=== PATIENT | female | born 1980 | race Caucasian/White ===

== ENCOUNTER 2017-03-18 18:34 | Inpatient (IN) | payer OTHER ==
[2017-03-18] MEDS ORDERED: Dinoprostone* 10 MG VAG.SUPP VAGINAL ONE (19:23)
[2017-03-18] MEDS: diPHENhydraMINE PO* 25 MG PO PRN (22:03)
[2017-03-19] MEDS ORDERED: Misoprostol TAB* 100 MCG VAGINAL ONE (08:20)
[2017-03-19] MEDS ORDERED: Misoprostol TAB* 100 MCG ONE (08:22)
[2017-03-19] MEDS: Oxytocin in LR* 20 UNITS/1,000 ML BAG IVPB SCH (14:20)
[2017-03-19 14:26] LABS: Hematocrit 36 % (35-47); Hemoglobin 11.8 g/dl (12.0-16.0); Mean Corpuscular HGB Conc 33 g/dl (31-36); Mean Corpuscular Hemoglobin 30 pg (27-31); Mean Corpuscular Volume 90 fL (80-97); Mean Platelet Volume 11 um3 (7.4-10.4); Red Blood Count 3.97 10^6/ul (4.0-5.4); Red Cell Distribution Width 14 % (10.5-15); White Blood Count 12.8 10^3/ul (3.5-10.8)
[2017-03-19 14:35] LABS: Add Diff/Slide Review? Slide Review Added; Comments Flag Yes
[2017-03-19 15:00] LABS: Platelet Morphology Large; Polychromasia 1+
[2017-03-19] MEDS: diPHENhydraMINE PO* 25 MG PO PRN (22:11)
[2017-03-20] MEDS ORDERED: Misoprostol TAB* 100 MCG VAGINAL ONE ×2 (08:47→13:18)
[2017-03-20] MEDS: Oxytocin in LR* 20 UNITS/1,000 ML BAG IVPB SCH (18:05)
[2017-03-20] MEDS: diPHENhydraMINE PO* 25 MG PO PRN (22:32)
[2017-03-21] MEDS: Oxytocin in LR* 20 UNITS/1,000 ML BAG IVPB SCH (08:45)
[2017-03-21] MEDS ORDERED: Oxytocin in LR* 20 UNITS/1,000 ML BAG IVPB SCH (23:00)
[2017-03-21] MEDS ORDERED: OBEPIDURAL* 250 ML ONE (23:02)
[2017-03-21 23:06] LABS: Hematocrit 36 % (35-47); Hemoglobin 11.7 g/dl (12.0-16.0); Mean Corpuscular HGB Conc 33 g/dl (31-36); Mean Corpuscular Hemoglobin 30 pg (27-31); Mean Corpuscular Volume 91 fL (80-97); Mean Platelet Volume 12 um3 (7.4-10.4); Red Blood Count 3.91 10^6/ul (4.0-5.4); Red Cell Distribution Width 15 % (10.5-15); White Blood Count 13.8 10^3/ul (3.5-10.8)
[2017-03-21 23:14] LABS: Comments Flag Yes
[2017-03-21] MEDS ORDERED: Phenylephrine IV* 40 MCG/ML 10 ML SYRINGE IV PUSH PRN ×2 (23:43)
[2017-03-21] MEDS ORDERED: Sodium Citrate/Citric Acid* 15 ML UDC PO PRN (23:43)
[2017-03-21] MEDS ORDERED: OBEPIDURAL* 250 ML EPIDURAL SCH (23:45)
[2017-03-22] MEDS ORDERED: Phenylephrine IV* 40 MCG/ML 10 ML SYRINGE IV PUSH PRN (00:25)
[2017-03-22] MEDS: Oxytocin in LR* 20 UNITS/1,000 ML BAG IVPB SCH (07:53)
[2017-03-22] MEDS ORDERED: Gentamicin Pediatric(*) 10 MG/ML 2 ML VIAL IVPB SCH (08:00)
[2017-03-22] MEDS ORDERED: Gentamicin ADULT per pharmacy 1 NOTE MISC FOLLOW UP PRN (08:03)
[2017-03-22] MEDS ORDERED: Acetaminophen TAB* 325 MG PO ONE (08:05)
[2017-03-22] MEDS ORDERED: ceFOXitin 2 GM IVPREMIX* 2 GM/50 ML BAG ONE (13:33)
[2017-03-22] MEDS ORDERED: Morphine PF AMP (0.5MG/ML)* 5 MG/10 ML AMP ONE (14:11)
[2017-03-22] MEDS ORDERED: OXYTOCIN* 10 UNITS/ML 1 ML VIAL ONE (14:24)
[2017-03-22] MEDS ORDERED: Naloxone* 0.4 MG/ML 1 ML VIAL IV PRN (14:42)
[2017-03-22] MEDS ORDERED: Ondansetron INJ* 2 MG/ML VIAL IV PRN (14:42)
[2017-03-22] MEDS ORDERED: DiMENhydriNATE IV* 50 MG/ML VIAL IV PUSH PRN (14:42)
[2017-03-22] MEDS ORDERED: oxyCODONE/Acetamin 5/325 MG* TAB PO PRN (14:42)
[2017-03-22] MEDS ORDERED: Nalbuphine* 20 MG/ML 1 ML VIAL IV PRN (14:42)
[2017-03-22] MEDS ORDERED: Ondansetron INJ* 2 MG/ML VIAL ONE (14:44)
[2017-03-22] MEDS ORDERED: fentaNYL* 50 MCG/ML 2 ML VIAL (100 MCG VIAL) IV PRN (14:46)
[2017-03-22] MEDS ORDERED: Phenylephrine IV* 40 MCG/ML 10 ML SYRINGE ONE (15:07)
[2017-03-22] MEDS ORDERED: Glycerin ADULT SUPP PR PRN (15:36)
[2017-03-22] MEDS ORDERED: Acetaminophen TAB* 325 MG PO PRN (15:36)
[2017-03-22] MEDS ORDERED: Dibucaine 1% 28.35 GM TUBE PR PRN (15:36)
[2017-03-22] MEDS ORDERED: Witch Hazel PAD* JAR TOPICAL PRN (15:36)
[2017-03-22] MEDS ORDERED: Misoprostol TAB* 200 MCG ONE (17:01)
[2017-03-22] MEDS: Ketorolac INJ* 30 MG/ML 1 ML VIAL IV PRN ×2 (17:47→23:55)
[2017-03-22] MEDS: Simethicone TAB* 80 MG TAB.CHEW PO SCH ×2 (17:47→22:22)
[2017-03-22] MEDS: Docusate CAP* 100 MG PO SCH (22:22)
--- NOTE | 2017-03-23 02:09 | OP ---
DATE OF OPERATION: 03/22/17 - ROOM #[facility]OB-101 DATE OF : 84 SURGEON: Josette Delarosa MD PRINTING ASSISTANT: Francine Salgado CNM PRE-OP DIAGNOSIS: Intrauterine gestation at 41 plus weeks gestational age, arrest of dilation. POST-OP DIAGNOSIS: Intrauterine gestation at 41 plus weeks gestational age, arrest of dilation plus thick meconium. OPERATIVE PROCEDURE: Primary low transverse section. ESTIMATED BLOOD LOSS: 800 mL. FLUIDS: Crystalloid. DRAINS: Noble catheter, 250 cc clear urine. FINDINGS: Female . Weight 8 pounds 7 ounces. Apgars 9 and 9. Normal- appearing placenta. Normal uterus, ovaries and tubes. Significant edema in the peritoneum and around the uterus and adnexa. COMPLICATIONS: None. DESCRIPTION OF PROCEDURE: After informed consent was signed, the patient was taken to the operating room where her epidural anesthesia was re-dosed and found to be adequate. She already had a Noble catheter in place. SCDs were placed on her legs. She was then prepped and draped in the dorsal supine position with a leftward tilt. A time-out was performed. A Pfannenstiel skin incision was then made with the scalpel and carried down to the underlying layer of fascia with the scalpel. The fascia was incised on either side of the midline and the fascial incision extended laterally with sharp dissection. The inferior edge of the fascial incision was then grasped with Elise clamps, tented up and dissected down with sharp dissection. The superior edge of the fascial incision was then grasped with Elise clamps, tented up and dissected down with sharp dissection. The rectus muscles were in the midline and the peritoneum was entered bluntly. A bladder flap was created in the vesicouterine peritoneum with the Metzenbaum scissors. The bladder blade was then reinserted and transverse incision was made in the lower uterine segment with the scalpel. The incision was extended superiorly and inferiorly with blunt pressure. The 's head was found to be in occiput posterior presentation. The head was brought to the incision and the head was delivered with fundal pressure followed by the shoulders and the rest of the body. The cord was milked towards the baby for 30 seconds and then clamped x2 and cut, and the baby was handed to the assistant strength coach. The placenta delivered with manual removal and cord blood was collected. The uterus was then exteriorized and cleared of clots and debris. The uterine incision was closed with 0 Vicryl in a running locked fashion. There was still a moderate amount of uterine bleeding, therefore 800 mcg of Cytotec was given rectally by the nurse. The second layer of 0 Vicryl suture was then used to close the uterus imbricating the first layer. The abdomen was irrigated. While irrigating and suctioning, the patient's left adnexa stretched and torsed slightly, causing a small amount of bleeding. This was stopped with cautery with the Bovie. The uterus was then placed back into the abdominal cavity and the incision was inspected and good hemostasis was noted. The location in the adnexa was also inspected and was also noted to have good hemostasis. The peritoneum was closed with 3-0 chromic in a running unlocked fashion. The fascia was closed with 0 Vicryl in a running unlocked fashion. The skin was closed with 4-0 Monocryl in a running subcuticular fashion. The incision was clean. Mastisol and Steri- Strips were placed. The incision was dressed. The patient was moved to the stretcher and taken to the recovery room in stable condition. [id number]/[facility] #: [id number] VANI
[2017-03-23] MEDS ORDERED: Zolpidem TAB* 5 MG PO PRN (06:15)
[2017-03-23] MEDS: Ketorolac INJ* 30 MG/ML 1 ML VIAL IV PRN ×2 (06:26→13:02)
[2017-03-23] MEDS ORDERED: Ferrous Gluconate TAB* 324 MG TAB PO SCH (09:00)
[2017-03-23] MEDS: Simethicone TAB* 80 MG TAB.CHEW PO SCH ×4 (09:47→23:00)
[2017-03-23] MEDS: Docusate CAP* 100 MG PO SCH ×3 (09:47→23:00)
[2017-03-23 09:57] LABS: Hematocrit 31 % (35-47); Hemoglobin 10.4 g/dl (12.0-16.0); Mean Corpuscular HGB Conc 34 g/dl (31-36); Mean Corpuscular Hemoglobin 31 pg (27-31); Mean Corpuscular Volume 90 fL (80-97); Mean Platelet Volume 10 um3 (7.4-10.4); Red Cell Distribution Width 15 % (10.5-15); White Blood Count 17.2 10^3/ul (3.5-10.8)
[2017-03-23] MEDS: oxyCODONE/Acetamin 5/325 MG* TAB PO PRN ×2 (17:06→21:40)
[2017-03-23] MEDS: Ibuprofen TAB* 600 MG PO PRN (21:40)
[2017-03-24] MEDS: oxyCODONE/Acetamin 5/325 MG* TAB PO PRN ×4 (01:25→20:10)
[2017-03-24] MEDS: Ibuprofen TAB* 600 MG PO PRN ×4 (03:35→22:40)
[2017-03-24] MEDS: Docusate CAP* 100 MG PO SCH ×3 (08:44→20:09)
[2017-03-24] MEDS: Simethicone TAB* 80 MG TAB.CHEW PO SCH ×3 (08:44→20:09)
--- NOTE | 2017-03-24 10:25 | PTEDU ---
Patient Name: GAETANO WILCOX GAETANO WILCOX selected video: Never Ever Shake a Baby to view on 03/24/2017 at 10:23:34 AM from [facility] [id number]
[2017-03-25] MEDS: oxyCODONE/Acetamin 5/325 MG* TAB PO PRN ×2 (02:47→10:49)
[2017-03-25] MEDS: Ibuprofen TAB* 600 MG PO PRN ×2 (05:03→10:49)
[2017-03-25 08:35] VITALS: BP 117/46
[2017-03-25] MEDS: Docusate CAP* 100 MG PO SCH (09:00)
[2017-03-25] MEDS: Simethicone TAB* 80 MG TAB.CHEW PO SCH (09:47)
== END 2017-03-25 12:01 | disposition home or self-care (01) | DRG 765 ==
LOC: MCHOBOUT 18:34 → MCHOB 19:00
PROVIDERS: ADMIT Midwife; ATTEND Obstetrics & Gynecology
PROC: 3E0P3VZ Introduction of Hormone into Female Reproductive, Percutaneous Approach (ICD-10-PCS; 2017-03-18)
PROC: 3E0P7VZ Introduction of Hormone into Female Reproductive, Via Natural or Artificial Opening (ICD-10-PCS; 2017-03-18)
PROC: 4A1HXCZ Monitoring of Products of Conception, Cardiac Rate, External Approach (ICD-10-PCS; 2017-03-19)
PROC: 10907ZC Drainage of Amniotic Fluid, Therapeutic from Products of Conception, Via Natural or Artificial Opening (ICD-10-PCS; 2017-03-21)
PROC: 10D00Z1 Extraction of Products of Conception, Low, Open Approach (ICD-10-PCS; principal; 2017-03-22 14:02)
DX: O48.0 Post-term pregnancy (principal); O75.2 Pyrexia during labor, not elsewhere classified; O62.1 Secondary uterine inertia; O77.0 Labor and delivery complicated by meconium in amniotic fluid; Z37.0 Single live birth; Z3A.41 41 weeks gestation of pregnancy
CPT/HCPCS: 36415; 85025; 85027; 86850; 86900; 86901; 88307; A9270-GY; J0290; J0694; J1580; J1885; J2405; J2590; S0191

== ENCOUNTER 2017-05-18 14:03 | Emergency (ER) | payer OTHER ==
[2017-05-18 16:00] VITALS: BP 112/56
--- NOTE | 2017-05-18 16:35 | UC ---
Breast Complaint - HPI Summary HPI Summary: ONSET OF LEFT BREAST REDNESS, FIRMNESS AND PAIN YESTERDAY. HAS CHILLS, MALAISE AND SUBJECTIVE FEVER. 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 ALSO HAS NOTICED SOME WHITE SPOTS ON HER NIPPLE WHICH SHE THINKS ARE CLOGGED DUCTS. - History of Current Complaint Hx Obtained From: Patient Breast Chief Complaint: Pain, Left, Color Changes Onset/Duration: Started Days Ago, Still Present Timing: Constant Breast Pain Aggravating Factors: Palpation, Pressure Breast Pain Alleviating Factors: Nothing Breast Associated Signs/Symptoms: Fever, Redness, Warmth - Allergy/Home Medications Allergies/Adverse Reactions: Allergies Allergy/AdvReac Type Severity Reaction Status Date / Time Lactose Intolerance (GI) Allergy GI Upset Verified 05/18/17 16:00 ENVIRONMENTAL Allergy STUFFINESS Uncoded 05/18/17 16:00 PMH/Surg Hx/FS Hx/Imm Hx Previously Healthy: Yes - Surgical History Surgical History: Yes Surgery Procedure, Year, and Place: 2012 WISDOM TEETH EXTRACTION, [place]. 2008 RIGHT BREAST BIOPSY, [facility]. MOLE REMOVED FROM BACK OF LEFT LEG, - Family History Known Family History: Positive: Hypertension - Social History Alcohol Use: None Substance Use Type: None Smoking Status (MU): Never Smoked Tobacco - Immunization History Most Recent Influenza Vaccination: 03/13/17 Most Recent Pneumonia Vaccination: na Review of Systems Constitutional: Fever, Chills Skin: Other - LEFT BREAST REDNESS, PAIN Respiratory: Negative Cardiovascular: Negative Gastrointestinal: Negative All Other Systems Reviewed And Are Negative: Yes Physical Exam Triage Information Reviewed: Yes Appearance: Well-Appearing, No Pain Distress, Well-Nourished Vital Signs: Initial Vital Signs Temp 99.4 F 05/18/17 15:54 Pulse 125 05/18/17 15:54 Resp 16 05/18/17 15:54 BP 112/56 05/18/17 15:54 Pulse Ox 100 05/18/17 15:54 Vital Signs Reviewed: Yes Eyes: Positive: Conjunctiva Clear ENT: Positive: Hearing grossly normal Neck: Positive: Supple Respiratory: Positive: No respiratory distress, No accessory muscle use Cardiovascular: Positive: Pulses Normal Abdomen Description: Positive: Soft Musculoskeletal: Positive: No Edema Neurological: Positive: Alert Psychological: Positive: Age Appropriate Behavior Skin: Negative: Other - LEFT BREAST ERYTHEMA, WARMTH AND TENDERNESS LOWER MEDIAL AND LATERAL QUADRANTS. NIPPLE CRACKED Breast Pain Course/Dx - Diagnoses Provider Diagnoses: Mastitis, left, acute Discharge - Discharge Plan Condition: Stable Disposition: HOME Prescriptions: Cephalexin CAP* [Keflex 500 CAP*] 1,000 mg PO BID #40 cap Patient Education Materials: Mastitis (ED) Referrals: Tawanna Thompson MD [Primary Care Provider] - If Needed Additional Instructions: TAKE THE FULL COURSE OF ANTIBIOTICS. YOU HAVE A CLOGGED MILK DUCT. IT IS VERY IMPORTANT THAT YOU CONTINUE TO BREASTFEED AND PUMP IN ORDER TO CLEAR THE BLOCKAGE. HEAT AND MASSAGE MAY ALSO HELP. USE IBUPROFEN FOR DISCOMFORT. THIS IS SAFE DURING . IF YOU CONTINUE TO HAVE DIFFICULTY WITH LATCH ON THE LEFTY SIDE CALL YOUR PEDIATRICIANS OFFICE TO INQUIRE ABOUT SEEING A GARBAGE PICK UP WORKER.
== END 2017-05-18 16:45 | disposition home or self-care (01) ==
LOC: UCEAST 14:03
DX: N61.0 Mastitis without abscess (principal)
CPT/HCPCS: 99212; G0463

== ENCOUNTER 2018-05-14 19:23 | Emergency (ER) | payer OTHER ==
[2018-05-14] MEDS ORDERED: Tetan/Diph/Pertus SYR(Tdap)* 0.5 ML SYR(BOOSTRIX) use SYR IM ONE (19:40)
--- NOTE | 2018-05-14 19:44 | UC ---
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 She tells me that she was doing dishes and a knife slipped and lacerated her right dorsal thumb. She applied a bandage to the area and came to . She is unsure the date of her last tetanus. - History Of Current Complaint Stated Complaint: FINGER LACERATION Time Seen by Provider: 05/14/18 19:42 Hx Obtained From: Patient Hx Last Menstrual Period: 12/29/16 Laceration Location: Finger Mechanism Of Injury: Sharp Trauma Onset/Duration: Sudden Onset Severity: Moderate Pain Intensity: 6 Pain Scale Used: 0-10 Numeric - Allergies/Home Medications Allergies/Adverse Reactions: Allergies Allergy/AdvReac Type Severity Reaction Status Date / Time MS Lactose Intolerance (GI) Allergy GI Upset Verified 05/18/17 16:00 [Lactose Intolerance (GI)] ENVIRONMENTAL Allergy STUFFINESS Uncoded 05/18/17 16:00 PMH/Surg Hx/FS Hx/Imm Hx - Additional Past Medical History Additional PMH: None - Surgical History Surgical History: Yes Surgery Procedure, Year, and Place: 2013 WISDOM TEETH EXTRACTION, [place]. 2009 RIGHT BREAST BIOPSY, [facility]. MOLE REMOVED FROM BACK OF LEFT LEG, - Family History Known Family History: Positive: Hypertension - Social History Occupation: Employed Full-time Lives: With Family Alcohol Use: None Substance Use Type: None Smoking Status (MU): Never Smoked Tobacco - Immunization History Most Recent Influenza Vaccination: 03/13/17 Most Recent Pneumonia Vaccination: na Review of Systems All Other Systems Reviewed And Are Negative: Yes Constitutional: Positive: Negative Skin: Positive: Other - Finger laceration Respiratory: Positive: Negative Cardiovascular: Positive: Negative Neurovascular: Positive: Negative Musculoskeletal: Positive: Negative Neurological: Positive: Negative Psychological: Positive: Negative Physical Exam - Summary Physical Exam Summary: GENERAL: NAD. WDWN. No pain distress. SKIN: RIGHT THUMB: Dorsal aspect overlying MCP with 1.5cm linear laceration through the dermis. No tendon involvement. NECK: Supple. Nontender. No lymphadenopathy. CHEST: No accessory muscle use. Breathing comfortably and in no distress. CV: Pulses intact. Cap refill <2seconds MSK: Right thumb FROM. NEURO: Alert. PSYCH: Age appropriate behavior. Triage Information Reviewed: Yes Vital Signs: Vital Signs: Temp Pulse Resp BP Pulse Ox 98.0 F 86 16 104/60 96 05/14/18 19:45 05/14/18 19:45 05/14/18 19:45 05/14/18 19:45 05/14/18 19:45 Vital Signs Reviewed: Yes Laceration Repair - Laceration Repair 1 Description: Linear Laceration Size After Repair: Length (cm) - 1.5 Modified For Repair: No Anesthesia Used: 2.0% Lido Irrigation With Pressure Irrigation Device: Yes Closure Material: Sutures - #4 Closure Method: Single Layer Suture Of: Skin Suture Type: Prolene - 5-0 Laceration Course/Dx - Course/Dx Course Of Treatment: The procedure was explained to the pt and all questions were answered. A time out was performed, witnessed, and signed. The area was irrigated with 250mL sterile saline. 1mL of 2% lidocaine without epi was administered and good anesthetization was achieved. In the usual sterile fashion , FOUR 5-0 prolene interrupted sutures were placed. The wound was bandaged with xeroform and telfa. Pt tolerated procedure well. tdap updated today - Diagnosis Provider Diagnosis: Laceration of thumb Discharge - Sign-Out/Discharge Documenting (check all that apply): Patient Departure All imaging exams completed and their final reports reviewed: No Studies - Discharge Plan Condition: Stable Disposition: HOME Patient Education Materials: Care For Your Stitches (DC), Laceration (DC) Referrals: Tawanna Thompson MD [Primary Care Provider] - Additional Instructions: If you develop a fever, shortness of breath, chest pain, new or worsening symptoms - please call your PCP or go to the ED. 1) Please keep the area bandaged, clean, dry, and intact for the next 24- 48hours. 2) If you develop a fever, colored or thick discharge, increased pain or swelling - please call your PCP or go to the ED. 3) Please return in 7-10 days to have your FOUR sutures removed. - Billing Disposition and Condition Condition: STABLE Disposition: Home
[2018-05-14] MEDS ORDERED: Lidocaine 2% PF * 5 ML VIAL INJ ONE (19:46)
[2018-05-14 20:33] VITALS: BP 104/60
== END 2018-05-14 20:35 | disposition home or self-care (01) ==
LOC: UCEAST 19:23
DX: S61.011A Laceration without foreign body of right thumb without damage to nail, initial encounter (principal); W26.0XXA Contact with knife, initial encounter; Y93.G1 Activity, food preparation and clean up; Y92.000 Kitchen of unspecified non-institutional (private) residence as the place of occurrence of the external cause
CPT/HCPCS: 12001; 90471; 90715; 99211; G0463

== ENCOUNTER 2018-05-23 09:00 | Emergency (ER) | payer OTHER ==
[2018-05-23 09:12] VITALS: BP 106/64
--- NOTE | 2018-05-23 09:30 | UC ---
General HPI - HPI Summary HPI Summary: 37 yo female presents for suture removal L thumb. Sutures placed 05/14/18 here in [facility]. D/t knife injury. Boostrix at that time. No current c/o's pain, redness, drainage. Still some dysesthesia distal to lac. - History of Current Complaint Chief Complaint: UCLaceration Stated Complaint: REMOVE STITCHES Time Seen by Provider: 05/23/18 09:28 Hx Obtained From: Patient Hx Last Menstrual Period: 05/01/18 Pain Intensity: 0 - Allergy/Home Medications Allergies/Adverse Reactions: Allergies Allergy/AdvReac Type Severity Reaction Status Date / Time MS Lactose Intolerance (GI) Allergy GI Upset Verified 05/23/18 09:07 [Lactose Intolerance (GI)] ENVIRONMENTAL Allergy STUFFINESS Uncoded 05/23/18 09:07 Home Medications: Home Medications Norethindrone-E.estradiol-Iron [Junel Fe 24 1-20 mg-Mcg(24)] 1 tab PO DAILY 01/01 [History Confirmed 05/23/18] PMH/Surg Hx/FS Hx/Imm Hx Previously Healthy: Yes - Surgical History Surgical History: Yes Surgery Procedure, Year, and Place: 2012 WISDOM TEETH EXTRACTION, [place]. 2008 RIGHT BREAST BIOPSY, [facility]. MOLE REMOVED FROM BACK OF LEFT LEG,. d&c 2016. 2017 - Family History Known Family History: Positive: Hypertension - Social History Alcohol Use: Occasionally Substance Use Type: None Smoking Status (MU): Never Smoked Tobacco - Immunization History Most Recent Influenza Vaccination: 03/13/17 Most Recent Pneumonia Vaccination: na Review of Systems All Other Systems Reviewed And Are Negative: Yes Physical Exam Triage Information Reviewed: Yes Appearance: Well-Appearing Vital Signs: Initial Vital Signs Temp 97 F 05/23/18 09:08 Pulse 89 05/23/18 09:08 Resp 18 05/23/18 09:08 BP 106/64 05/23/18 09:08 Pulse Ox 96 05/23/18 09:08 Vital Signs Reviewed: Yes Eye Exam: Normal ENT Exam: Normal Neck exam: Normal - grossly normal Respiratory Exam: Normal - grossly normal Cardiovascular Exam: Normal - grossly normal Abdominal Exam: Normal - grossly normal Musculoskeletal Exam: Normal - grossly normal Neurological Exam: Normal - grossly normal Psychological Exam: Normal - grossly normal Skin Exam: Other - R dorsal thumb with sutures intact x 4 SI. No evidence infection / cellulitis. Subj mild dysesthesia distal to lac site. FROM. good cap refill. Course/Dx - Course Course Of Treatment: sutures removed. reviewed coa / tx plan. reinforced via steristrips / benzoin. Re dysesthesia - recommend f/u pcp. Given location of the lac (near nerve), sensation return may take at least several weeks, or indefinite. D/w pt. Questions answered as posed. - Diagnoses Provider Diagnosis: Visit for suture removal Discharge - Sign-Out/Discharge Documenting (check all that apply): Patient Departure All imaging exams completed and their final reports reviewed: No Studies - Discharge Plan Condition: Stable Disposition: HOME Patient Education Materials: Stitches Removal (ED), Steristrips (ED) Referrals: Tawanna Thompson MD [Primary Care Provider] - Additional Instructions: Follow up with your primary care physician, in the next 2-3 weeks for recheck as needed. Seek medical attention for worse or new problems. - Billing Disposition and Condition Condition: STABLE Disposition: Home
[2018-05-23] MEDS ORDERED: Benzoin COMPOUND swab* 1 applicator pak TOPICAL ONE (09:41)
[2018-05-23] MEDS ORDERED: Benzoin Compound STICK ONE (09:43)
[2018-05-23] MEDS ORDERED: Benzoin Compound STICK TOPICAL ONE (10:09)
== END 2018-05-23 10:06 | disposition home or self-care (01) ==
LOC: UCEAST 09:00
DX: S61.012D Laceration without foreign body of left thumb without damage to nail, subsequent encounter (principal); W26.0XXD Contact with knife, subsequent encounter

== ENCOUNTER 2020-12-21 06:05 | Inpatient (IN) ==
[~2020-12-21 06:05] MED LIST: ceFOXitin 2 GM IVPREMIX 2 GM/50 ML BAG IVPB ONE
[2020-12-21] MEDS ORDERED: Morphine PF AMP (0.5MG/ML) 5 MG/10 ML AMP ONE (07:10)
[2020-12-21] MEDS ORDERED: Ondansetron 4 mg VIAL 2 MG/ML 2 ml VIAL ONE (07:11)
[2020-12-21] MEDS ORDERED: Oxytocin 10 UNITS/ML 1 ML VIAL ONE (07:11)
[2020-12-21] MEDS ORDERED: Phenylephrine 40 mcg/mL 10mL (400mcg) SYRINGE ONE ×4 (07:14→09:06)
[2020-12-21 07:33] LABS: Urine Benzodiazepine Screen None Detected (None Detect); Urine Cannabinoids Screen None Detected (None Detect); Urine Opiates Screen None Detected (None Detect)
[2020-12-21] MEDS ORDERED: EPHEDrine (Pressors) 50 MG/ML VIAL ONE (08:17)
[2020-12-21] MEDS ORDERED: Naloxone 0.4 mg VIAL 0.4 mg/ml 1 ml VIAL IV PRN (08:30)
[2020-12-21] MEDS ORDERED: Ondansetron 4 mg VIAL 2 MG/ML 2 ml VIAL IV PRN (08:30)
[2020-12-21] MEDS ORDERED: diPHENhydraMINE IV 50 MG/ML 1 ml VIAL (BENADRYL) IV PRN (08:30)
[2020-12-21] MEDS ORDERED: Acetaminophen IV 1 GM/100ML 1,000 MG/100 ML VIAL IVPB PRN (08:31)
[2020-12-21] MEDS ORDERED: Glycerin ADULT 2.4 gm SUPP PR PRN (09:38)
[2020-12-21] MEDS ORDERED: Witch Hazel PAD JAR TOPICAL PRN (09:38)
[2020-12-21] MEDS ORDERED: Dibucaine 1% OINT 28.35 GM TUBE PR PRN (09:38)
[2020-12-21] MEDS ORDERED: Oxytocin in LR 20 UNITS/1,000 ML BAG IVPB SCH (10:00)
[2020-12-21] MEDS ORDERED: Lactated Ringers 1000 ml BAG 1,000 ML IV SCH (10:00)
[2020-12-21 16:47] LABS: Urine Appearance Turbid; Urine Bilirubin Negative (Negative); Urine Blood Negative (Negative); Urine Color Yellow; Urine Glucose Negative (Negative); Urine Ketones 2+ (Negative); Urine Nitrite Negative (Negative); Urine Protein 1+(30 mg/dL) (Negative); Urine Specific Gravity 1.025 (1.002-1.030); Urine Urobilinogen Negative (Negative)
[2020-12-21 16:51] LABS: Urine Bacteria Absent (Absent); Urine Red Blood Cell Absent (Absent); Urine Squamous Epithelial Cell Present (Absent); Urine White Blood Cell Absent (Absent)
[2020-12-22 06:45] LABS: ABS Basophils 0.1 10^3/ul (0-0.2); ABS Eosinophils 0.2 10^3/ul (0-0.6); ABS Lymphocytes 1.5 10^3/ul (1.0-4.8); ABS Monocytes 0.7 10^3/ul (0-0.8); ABS Neutrophils 7.4 10^3/ul (1.5-7.7); Eosinophil % 1.8 %; Hematocrit 30 % (35-47); Hemoglobin 10.1 g/dL (12.0-16.0); Lymphocyte % 15.1 %; Mean Corpuscular HGB Conc 34 g/dL (31-36); Mean Corpuscular Hemoglobin 29 pg (27-31); Mean Corpuscular Volume 87 fL (80-97); Mean Platelet Volume 10.3 fL (7.4-10.4); Platelet Count 159 10^3/uL (150-450); Red Blood Count 3.45 10^6 /uL (3.70-4.87); Red Cell Distribution Width 15 % (10-15); White Blood Count 9.8 10^3/uL (3.5-10.8)
[2020-12-24 07:33] VITALS: BP 98/62
== END 2020-12-24 11:50 | disposition home or self-care (01) | DRG 788 ==
LOC: MCHOB 06:05
PROVIDERS: ADMIT Obstetrics & Gynecology; ATTEND Obstetrics & Gynecology